=== PATIENT | female | born 1965 | race Caucasian/White ===

== ENCOUNTER 2017-09-18 12:03 | Inpatient (IN) | payer OTHER ==
[2017-09-18 13:12] VITALS: BMI 41.6
--- NOTE | 2017-09-18 14:53 | HP ---
CIWA Score - CIWA Score Nausea/Vomitin Muscle Tremors: 3 Anxiety: 3 Agitation: 3 Paroxysmal Sweats: 2 Orientation: 0-Oriented Tacttile Disturbances: 2-Mild Itch/Numbness/Burn Auditory Disturbances: 2-Mild Harshness/Frighten Visual Disturbances: 0-None Headache: 2-Mild CIWA-Ar Total Score: 20 Admission ROS [facility] - HPI Chief Complaint: i am here for detox from alcohol Allergies/Adverse Reactions: Allergies Allergy/AdvReac Type Severity Reaction Status Date / Time vancomycin Allergy Severe Rash Verified 09/18/17 14:47 History of Present Illness: this 52 years old female with alcohol dependence,seeking detox,last treatment [facility] last 3 months ago chronic ulcer of right foot and leg 3 years multiple medical problem hiv,dvt of right leg,s/p ivc filter, mmtp 70 mgs/day,last medicated today hiv one month ago s/p lap bariatric surgery 2013 s/p amputation of 2nd digit 06/17 no significant period of sobriety - Ebola screening Have you traveled outside of the country in the last 21 days: No Have you had contact with anyone from an Ebola affected area: No Have you been sick,other than usual withdrawal symptoms: No Do you have a fever: No - Review of Systems Constitutional: Night Sweats, Changes in sleep EENT: reports: Nose Congestion Respiratory: reports: No Symptoms reported Cardiac: reports: No Symptoms Reported GI: reports: Nausea, Poor Appetite, Vomiting : reports: No Symptoms Reported Musculoskeletal: reports: Back Pain, Muscle Pain Integumentary: reports: Dryness Neuro: reports: Headache, Tremors Endocrine: reports: No Symptoms Reported Hematology: reports: No Symptoms Reported, Other (hiv) Psychiatric: reports: No Sypmtoms Reported, Judgement Intact, Mood/Affect Appropiate, Orientated x3 Patient History - Patient Medical History Hx Anemia: No Hx Asthma: No Hx Chronic Obstructive Pulmonary Disease (COPD): No Hx Cancer: No Hx Cardiac Disorders: No Hx Congestive Heart Failure: No Hx Hypertension: No Hx Hypercholesterolemia: No Hx Pacemaker: No HX Cerebrovascular Accident: No Hx Seizures: No Hx Dementia: No Hx Diabetes: No Hx Gastrointestinal Disorders: No Hx Liver Disease: No Hx Genitourinary Disorders: No Hx Sexually Transmitted Disorders: No Hx Renal Disease (ESRD): No Hx Thyroid Disease: No Hx Human Immunodeficiency Virus (HIV): Yes (07/18 on med) Hx Hepatitis C: No Hx Depression: No Hx Suicide Attempt: No Hx Bipolar Disorder: No Hx Schizophrenia: No Other Medical History: no suicidal,no homicidal,chronic ulcer of right foot and leg,s/p lap bariat - Patient Surgical History Past Surgical History: Yes Hx Abdominal Surgery: Yes (s/p lap bariatric surgery in 2013) Other Surgical History: s/p ivc filter - PPD History Previous Implant?: Yes Documented Results: Negative w/o proof Implanted On Prior [facility] Admission?: No PPD to be Administered?: Yes - Reproductive History Patient is a Female of Child Bearing Age (11 -55 yrs old): Yes Patient : No - Smoking Cessation Smoking history: Never smoked - Substance & Tx. History Hx Alcohol Use: Yes Hx Substance Use: No Substance Use Type: Alcohol Hx Substance Use Treatment: Yes (last treatment [facility] 06/17) - Substances Abused Alcohol-beer Route: Oral Frequency: Daily Amount used: 15 (24 oz.) Age of first use: 21 Date of Last Use: 09/18/17 Family Disease History - Family Disease History Family History: Denies Admission Physical Exam [facility] - Vital Signs Vital Signs: Vital Signs - 24 hr 09/18/17 13:08 Temperature 97.4 F L Pulse Rate 105 H Respiratory 19 Rate Blood Pressure 113/111 - Physical General Appearance: Yes: Moderate Distress, Tremorous, Irritable, Sweating, Anxious HEENTM: Yes: Normal ENT Inspection, APPLE, Pharynx Normal Respiratory: Yes: Lungs Clear, Normal Breath Sounds, No Respiratory Distress Neck: Yes: Within Normal Limits, Supple, Trachea in good position Breast: Yes: Breast Exam Deferred Cardiology: Yes: Within Normal Limits, Regular Rhythm, Regular Rate, S1, S2 Abdominal: Yes: Within Normal Limits, Normal Bowel Sounds, Non Tender, Flat, Soft, Surgical Scar (s/p lap bariatric surgery) Genitourinary: Yes: Within Normal Limits Back: Yes: Muscle Spasm Musculoskeletal: Yes: Back pain, Muscle Pain Extremities: Yes: Normal Range of Motion, Tremors, Other (ulcer of righ foot right big toe 3x3 cm,no drianage,right leg with swelling) Neurological: Yes: Within Normal Limits, associate professor of medicine II-XII NML intact, Fully Oriented, Alert Integumentary: Yes: Dry Lymphatic: Yes: Within Normal Limits - Diagnostic (1) Alcohol dependence with uncomplicated withdrawal Current Visit: Yes Status: Chronic (2) Ulcer of right foot Current Visit: Yes Status: Acute (3) History of deep venous thrombosis (DVT) of distal vein of right lower extremity Current Visit: Yes Status: Chronic (4) S/P IVC filter Current Visit: Yes Status: Chronic (5) HIV (human immunodeficiency virus infection) Current Visit: Yes Status: Chronic (6) History of bariatric surgery Current Visit: Yes Status: Chronic (7) UTI (urinary tract infection) Current Visit: Yes Status: Acute Cleared for Admission [facility] - Detox or Rehab [facility] Level of Care: Medically Managed Detox Regimen/Protocol: Librium [facility] Breath Alcohol Content Breath Alcohol Content: 0.143 Urine Pregancy Test - Result Urine Test Results: Negative- NO Line Present Urine Drug Screen - Results Drug Screen Negative: No Urine Drug Screen Results: MTD-Methadone
[2017-09-18] MEDS ORDERED: guaiFENesin/D-METHORPHAN HB 10 ML UNIT-DOSE CUPS PO PRN (15:08)
[2017-09-18] MEDS ORDERED: MAG HYDROX/AL HYDROX/SIMETH 30 ML UNIT-DOSE CUP PO PRN (15:08)
[2017-09-18] MEDS ORDERED: MAGNESIUM HYDROX 2400MG/30ML ORAL SUSPENSION 30 ML CUP PO PRN (15:08)
[2017-09-18] MEDS ORDERED: MAGNESIUM CITRATE 300 ML BOTTLE PO PRN (15:08)
[2017-09-18] MEDS ORDERED: P-EPHED 60MG/TRIPROLIDI 2.5MG TABLET PO PRN (15:08)
[2017-09-18] MEDS ORDERED: hydrOXYzine PAMOATE 50 MG CAPSULE (FP) PO PRN (15:08)
[2017-09-18] MEDS ORDERED: MENTHOL/PHENOL 1 EACH UD MM PRN (15:08)
[2017-09-18] MEDS ORDERED: LOPERAMIDE HCL 2 MG CAPSULE PO PRN (15:08)
[2017-09-18] MEDS ORDERED: ACETAMINOPHEN 325 MG TABLET (FP) PO PRN (15:08)
[2017-09-18] MEDS ORDERED: chlordiazePOXIDE HCL 25 MG CAPSULE PO ONE ×2 (15:08→17:30)
[2017-09-18] MEDS ORDERED: LINEZOLID 600 MG PO SCH ×2 (15:15→18:58)
--- NOTE | 2017-09-18 19:00 | PN ---
[facility] Progress Note Note: received pharmacist call that linezolid issued on 06/2017, pharmacist unable to verify the medication discontinue linezolid continue detox
[2017-09-18 20:45] LABS: URINE APPEARANCE CLEAR; URINE BILIRUBIN NEGATIVE (NEGATIVE); URINE BLOOD 1+ (NEGATIVE); URINE COLOR STRAW; URINE GLUCOSE (UA) NEGATIVE (NEGATIVE); URINE KETONE NEGATIVE (NEGATIVE); URINE NITRITE NEGATIVE (NEGATIVE); URINE UROBILINOGEN NEGATIVE mg/dL (0.2-1.0)
[2017-09-18 20:54] LABS: URINE PROTEIN 1+ (NEGATIVE)
[2017-09-18 21:17] LABS: URINE BACTERIA FEW /hpf (NONE SEEN); URINE RBC <1 /hpf (0-3); URINE WBC 1 /hpf (3-5)
[2017-09-18] MEDS: chlordiazePOXIDE HCL 25 MG CAPSULE PO PRN (21:31)
[2017-09-18] MEDS ORDERED: NITROFURANTOIN MACROCRYSTAL 50 MG CAPSULE (FP) PO SCH (22:00)
[2017-09-18] MEDS ORDERED: PATIENT'S OWN MEDICATION (NON-FORMULARY) (Nitrofurantoin Macrocrystal [Nitrofurantoin] 100 PO SCH (22:00)
[2017-09-18 22:38] LABS: URINE LEUK ESTERASE Negative (NEGATIVE)
[2017-09-18] MEDS: THIAMINE HCL 100 MG TABLET (FP) PO SCH (23:01)
[2017-09-18] MEDS: chlordiazePOXIDE HCL 25 MG CAPSULE PO SCH (23:05)
[2017-09-18] MEDS: diphenhydrAMINE HCL 50 MG CAPSULE PO PRN (23:06)
[2017-09-18] MEDS: SILVER SULFADIAZINE 1% TOP CREAM 50 GM JAR TP SCH (23:06)
[2017-09-19] MEDS: chlordiazePOXIDE HCL 25 MG CAPSULE PO SCH ×4 (05:54→22:46)
[2017-09-19] MEDS: IBUPROFEN 400 MG TABLET (FP) PO PRN ×2 (07:56→17:30)
[2017-09-19] MEDS ORDERED: METHADONE HCL 10 MG TABLET PO ONE (09:09)
[2017-09-19] MEDS ORDERED: METHADONE 40 MG, METHADONE 30 MG PO ONE (09:20)
[2017-09-19] MEDS ORDERED: METHADONE HCL 40 MG DISPERSABLE TABLET ONE (09:54)
[2017-09-19] MEDS ORDERED: METHADONE HCL 10 MG TABLET ONE (09:54)
[2017-09-19] MEDS: PRENATAL VITAMINS W/ FOLIC ACID TABLET (FP) PO SCH (09:59)
[2017-09-19] MEDS: SILVER SULFADIAZINE 1% TOP CREAM 50 GM JAR TP SCH ×2 (10:00→21:57)
[2017-09-19 10:45] LABS: MCHC 30.6 g/dl (32.0-36.0); MEAN CELL VOLUME 75.3 fl (80-96); PLATELET COUNT 213 K/MM3 (134-434); RDW 18.4 % (11.6-15.6); WHITE BLOOD COUNT 4.5 K/mm3 (4.0-10.0)
[2017-09-19 11:10] LABS: ALBUMIN 2.4 g/dl (3.4-5.0); ALK PHOS 100 U/L (45-117); ANION GAP 9 (8-16); BILIRUBIN,TOTAL 0.8 mg/dL (0.2-1.0); CALCIUM 8.1 mg/dL (8.5-10.1); CO2 30 mmol/L (21-32); CREATININE 0.4 mg/dL (0.55-1.02); GLUCOSE,RANDOM 100 mg/dL (74-106); SGOT/AST 16 U/L (15-37); SGPT/ALT 12 U/L (12-78); TOT PROT 7.6 g/dl (6.4-8.2)
[2017-09-19 11:12] LABS: SICKLE CELL SCREEN NEGATIVE (NEGATIVE)
--- NOTE | 2017-09-19 12:30 | PN ---
[facility] CIWA - CIWA Score Nausea/Vomitin-No Nausea/No Vomiting Muscle Tremors: 4-Moderate,w/Arms Extend Anxiety: 3 Agitation: 4-Moderately Restless Paroxysmal Sweats: 3 Orientation: 0-Oriented Tacttile Disturbances: 0-None Auditory Disturbances: 0-None Visual Disturbances: 0-None Headache: 1-Very Mild CIWA-Ar Total Score: 15 [facility] Progress Note (SOAP) Subjective: interrupted sleep shakes sweats body aches irritable agitation Objective: 09/19/17 12:24 Vital Signs Temperature 98.0 F 09/19/17 10:09 Pulse Rate 94 H 09/19/17 10:09 Respiratory Rate 18 09/19/17 10:09 Blood Pressure 115/87 09/19/17 10:09 O2 Sat by Pulse Oximetry (%) Laboratory Tests 09/18/17 09/19/17 09/19/17 20:00 07:00 07:00 WBC 4.5 RBC 3.98 Hgb 9.2 L Hct 30.0 L MCV 75.3 L MCH 23.0 L MCHC 30.6 L RDW 18.4 H Plt Count 213 MPV 7.0 L Sickle Cell Screen Negative Sodium 138 Potassium 3.5 Chloride 99 Carbon Dioxide 30 Anion Gap 9 BUN 5 L Creatinine 0.4 L Creat Clearance w eGFR > 60 Random Glucose 100 Calcium 8.1 L Total Bilirubin 0.8 AST 16 ALT 12 Alkaline Phosphatase 100 Total Protein 7.6 Albumin 2.4 L Urine Color Straw Urine Appearance Clear Urine pH 5.0 Ur Specific [place] <= 1.005 Urine Protein 1+ H Urine Glucose (UA) Negative Urine Ketones Negative Urine Blood 1+ H Urine Nitrite Negative Urine Bilirubin Negative Urine Urobilinogen Negative Ur Leukocyte Esterase Negative Urine RBC <1 Urine WBC 1 Ur Epithelial Cells Rare Urine Bacteria Few RPR Titer 09/19/17 07:00 WBC RBC Hgb Hct MCV MCH MCHC RDW Plt Count MPV Sickle Cell Screen Sodium Potassium Chloride Carbon Dioxide Anion Gap BUN Creatinine Creat Clearance w eGFR Random Glucose Calcium Total Bilirubin AST ALT Alkaline Phosphatase Total Protein Albumin Urine Color Urine Appearance Urine pH Ur Specific [place] Urine Protein Urine Glucose (UA) Urine Ketones Urine Blood Urine Nitrite Urine Bilirubin Urine Urobilinogen Ur Leukocyte Esterase Urine RBC Urine WBC Ur Epithelial Cells Urine Bacteria RPR Titer Nonreactive aaox3 ambulating no acute distress foot ulcer assessed, no drainage noted however, d/t past medical history of MRSA , wound culture ordered for validation wound care ordered Assessment: 09/19/17 12:26 withdrawal sx Plan: continue detox increase fluids mrsa culture wound ordered
--- NOTE | 2017-09-19 13:07 | EKG ---
Test Reason : Blood Pressure : / mmHG Vent. Rate : 095 BPM Atrial Rate : 095 BPM P-R Int : 202 ms QRS Dur : 092 ms QT Int : 384 ms P-R-T Axes : 067 040 042 degrees QTc Int : 482 ms NORMAL SINUS RHYTHM CANNOT RULE OUT ANTERIOR INFARCT , AGE UNDETERMINED ABNORMAL ECG NO PREVIOUS ECGS AVAILABLE Confirmed by AUDREY PENN MD ([id number]) on 09/19/2017 1:07:24 PM Referred By: Confirmed By:AUDREY PENN MD
--- NOTE | 2017-09-19 13:47 | PN ---
[facility] Progress Note Note: rash both hands,itching,benadryl 25 mgs po q 6 hrs prn for itching
[2017-09-19] MEDS: chlordiazePOXIDE HCL 25 MG CAPSULE PO PRN (13:55)
[2017-09-19] MEDS: diphenhydrAMINE HCL 25 MG CAPSULE (FP) PO PRN (14:49)
[2017-09-19] MEDS: diphenhydrAMINE HCL 50 MG CAPSULE PO PRN (21:56)
[2017-09-19] MEDS: THIAMINE HCL 100 MG TABLET (FP) PO SCH (21:57)
[2017-09-20] MEDS: IBUPROFEN 400 MG TABLET (FP) PO PRN (03:25)
[2017-09-20] MEDS: chlordiazePOXIDE HCL 25 MG CAPSULE PO PRN (03:25)
[2017-09-20] MEDS ORDERED: METHADONE HCL 40 MG DISPERSABLE TABLET ONE (05:05)
[2017-09-20] MEDS ORDERED: METHADONE HCL 10 MG TABLET ONE (05:05)
[2017-09-20] MEDS: METHADONE 40 MG, METHADONE 30 MG PO SCH (05:59)
[2017-09-20] MEDS: chlordiazePOXIDE HCL 25 MG CAPSULE PO SCH ×3 (05:59→16:50)
[2017-09-20] MEDS ORDERED: METHADONE HCL 40 MG DISPERSABLE TABLET PO SCH ×2 (06:00)
[2017-09-20] MEDS: SILVER SULFADIAZINE 1% TOP CREAM 50 GM JAR TP SCH ×2 (11:02→23:08)
[2017-09-20] MEDS: PRENATAL VITAMINS W/ FOLIC ACID TABLET (FP) PO SCH (11:03)
[2017-09-20] MEDS: diphenhydrAMINE HCL 25 MG CAPSULE (FP) PO PRN ×2 (11:07→17:54)
--- NOTE | 2017-09-20 13:01 | PN ---
S CIWA - CIWA Score Nausea/Vomitin-No Nausea/No Vomiting Muscle Tremors: 4-Moderate,w/Arms Extend Anxiety: 3 Agitation: 3 Paroxysmal Sweats: 3 Orientation: 0-Oriented Tacttile Disturbances: 0-None Auditory Disturbances: 0-None Visual Disturbances: 0-None Headache: 0-None Present CIWA-Ar Total Score: 13 [facility] Progress Note (SOAP) Subjective: sweats shakes anxiety interrupted sleep Objective: 09/20/17 12:57 Vital Signs Temperature 97.1 F L 09/20/17 10:03 Pulse Rate 117 H 09/20/17 10:03 Respiratory Rate 20 09/20/17 10:03 Blood Pressure 122/86 09/20/17 10:03 O2 Sat by Pulse Oximetry (%) Laboratory Tests 09/18/17 09/19/17 09/19/17 20:00 07:00 07:00 WBC 4.5 RBC 3.98 Hgb 9.2 L Hct 30.0 L MCV 75.3 L MCH 23.0 L MCHC 30.6 L RDW 18.4 H Plt Count 213 MPV 7.0 L Sickle Cell Screen Negative Sodium 138 Potassium 3.5 Chloride 99 Carbon Dioxide 30 Anion Gap 9 BUN 5 L Creatinine 0.4 L Creat Clearance w eGFR > 60 Random Glucose 100 Calcium 8.1 L Total Bilirubin 0.8 AST 16 ALT 12 Alkaline Phosphatase 100 Total Protein 7.6 Albumin 2.4 L Urine Color Straw Urine Appearance Clear Urine pH 5.0 Ur Specific [place] <= 1.005 Urine Protein 1+ H Urine Glucose (UA) Negative Urine Ketones Negative Urine Blood 1+ H Urine Nitrite Negative Urine Bilirubin Negative Urine Urobilinogen Negative Ur Leukocyte Esterase Negative Urine RBC <1 Urine WBC 1 Ur Epithelial Cells Rare Urine Bacteria Few RPR Titer 09/19/17 07:00 WBC RBC Hgb Hct MCV MCH MCHC RDW Plt Count MPV Sickle Cell Screen Sodium Potassium Chloride Carbon Dioxide Anion Gap BUN Creatinine Creat Clearance w eGFR Random Glucose Calcium Total Bilirubin AST ALT Alkaline Phosphatase Total Protein Albumin Urine Color Urine Appearance Urine pH Ur Specific [place] Urine Protein Urine Glucose (UA) Urine Ketones Urine Blood Urine Nitrite Urine Bilirubin Urine Urobilinogen Ur Leukocyte Esterase Urine RBC Urine WBC Ur Epithelial Cells Urine Bacteria RPR Titer Nonreactive aaox3 ambulating no acute distress Assessment: 09/20/17 13:01 withdrawal sx Plan: continue detox increase fluids pending labs
[2017-09-20] MEDS: THIAMINE HCL 100 MG TABLET (FP) PO SCH (23:08)
[2017-09-20] MEDS: chlordiazePOXIDE 5 MG CAPSULE PO SCH (23:08)
[2017-09-20] MEDS: diphenhydrAMINE HCL 50 MG CAPSULE PO PRN (23:09)
[2017-09-21] MEDS: IBUPROFEN 400 MG TABLET (FP) PO PRN (04:14)
[2017-09-21] MEDS ORDERED: METHADONE HCL 10 MG TABLET ONE (04:23)
[2017-09-21] MEDS ORDERED: METHADONE HCL 40 MG DISPERSABLE TABLET ONE (04:23)
[2017-09-21] MEDS: METHADONE 40 MG, METHADONE 30 MG PO SCH (06:23)
[2017-09-21] MEDS: chlordiazePOXIDE 5 MG CAPSULE PO SCH ×3 (06:23→17:46)
[2017-09-21] MEDS: SILVER SULFADIAZINE 1% TOP CREAM 50 GM JAR TP SCH ×2 (11:18→22:55)
[2017-09-21] MEDS: PRENATAL VITAMINS W/ FOLIC ACID TABLET (FP) PO SCH (11:19)
--- NOTE | 2017-09-21 13:01 | PN ---
[facility] Progress Note (SOAP) Subjective: anxious, shaky, poor sleep Objective: 09/21/17 13:01 Laboratory Tests 09/18/17 09/19/17 09/19/17 20:00 07:00 07:00 WBC 4.5 RBC 3.98 Hgb 9.2 L Hct 30.0 L MCV 75.3 L MCH 23.0 L MCHC 30.6 L RDW 18.4 H Plt Count 213 MPV 7.0 L Sickle Cell Screen Negative Sodium 138 Potassium 3.5 Chloride 99 Carbon Dioxide 30 Anion Gap 9 BUN 5 L Creatinine 0.4 L Creat Clearance w eGFR > 60 Random Glucose 100 Calcium 8.1 L Total Bilirubin 0.8 AST 16 ALT 12 Alkaline Phosphatase 100 Total Protein 7.6 Albumin 2.4 L Urine Color Straw Urine Appearance Clear Urine pH 5.0 Ur Specific [place] <= 1.005 Urine Protein 1+ H Urine Glucose (UA) Negative Urine Ketones Negative Urine Blood 1+ H Urine Nitrite Negative Urine Bilirubin Negative Urine Urobilinogen Negative Ur Leukocyte Esterase Negative Urine RBC <1 Urine WBC 1 Ur Epithelial Cells Rare Urine Bacteria Few RPR Titer 09/19/17 07:00 WBC RBC Hgb Hct MCV MCH MCHC RDW Plt Count MPV Sickle Cell Screen Sodium Potassium Chloride Carbon Dioxide Anion Gap BUN Creatinine Creat Clearance w eGFR Random Glucose Calcium Total Bilirubin AST ALT Alkaline Phosphatase Total Protein Albumin Urine Color Urine Appearance Urine pH Ur Specific [place] Urine Protein Urine Glucose (UA) Urine Ketones Urine Blood Urine Nitrite Urine Bilirubin Urine Urobilinogen Ur Leukocyte Esterase Urine RBC Urine WBC Ur Epithelial Cells Urine Bacteria RPR Titer Nonreactive Vital Signs Period Temp Pulse Resp BP Sys/[place] Pulse Ox Last 24 Hr 97.2 F-98.1 F 72-114 18-20 123-156/63-106 Assessment: 09/21/17 13:01 ongoing withdrawal Plan: cont detox protocol
[2017-09-21] MEDS: SULFAMETHOXAZOLE/TRIMETHOPRIM 800MG/160MG D.S. TABLET PO SCH ×2 (15:05→22:53)
[2017-09-21] MEDS: ACAMPROSATE CALCIUM PO SCH ×2 (15:31→22:53)
[2017-09-21] MEDS: chlordiazePOXIDE HCL 10 MG CAPSULE PO SCH (22:53)
[2017-09-21] MEDS: THIAMINE HCL 100 MG TABLET (FP) PO SCH (22:53)
[2017-09-21] MEDS: diphenhydrAMINE HCL 50 MG CAPSULE PO PRN (22:53)
[2017-09-22] MEDS: IBUPROFEN 400 MG TABLET (FP) PO PRN (02:23)
[2017-09-22] MEDS ORDERED: METHADONE HCL 40 MG DISPERSABLE TABLET ONE (04:28)
[2017-09-22] MEDS ORDERED: METHADONE HCL 10 MG TABLET ONE (04:28)
[2017-09-22] MEDS: chlordiazePOXIDE HCL 10 MG CAPSULE PO SCH (06:06)
[2017-09-22] MEDS: METHADONE 40 MG, METHADONE 30 MG PO SCH (06:07)
[2017-09-22] MEDS: ACAMPROSATE CALCIUM PO SCH (06:07)
[2017-09-22 07:41] VITALS: BP 153/93; PULSE 109; TEMP 97.7
--- NOTE | 2017-09-22 11:45 | DS ---
[facility] Detox Discharge Summary Admission Date: 09/18/17 Discharge Date: 09/22/17 - History Present History: Alcohol Dependence Pertinent Past History: HIV Infection MRSA Ulcer of legs DVT S/P IVC filter Anemia - Physical Exam Results Vital Signs: Vital Signs Temperature 97.7 F 09/22/17 06:00 Pulse Rate 109 H 09/22/17 06:00 Respiratory Rate 20 09/22/17 06:00 Blood Pressure 153/93 09/22/17 06:00 O2 Sat by Pulse Oximetry (%) Pertinent Admission Physical Exam Findings: Withdrawal sx Laboratory Last Values WBC 4.5 K/mm3 (4.0-10.0) 09/19/17 07:00 RBC 3.98 M/mm3 (3.60-5.2) 09/19/17 07:00 Hgb 9.2 GM/dL (10.7-15.3) L 09/19/17 07:00 Hct 30.0 % (32.4-45.2) L 09/19/17 07:00 MCV 75.3 fl (80-96) L 09/19/17 07:00 MCH 23.0 pg (25.7-33.7) L 09/19/17 07:00 MCHC 30.6 g/dl (32.0-36.0) L 09/19/17 07:00 RDW 18.4 % (11.6-15.6) H 09/19/17 07:00 Plt Count 213 K/MM3 (134-434) 09/19/17 07:00 MPV 7.0 fl (7.5-11.1) L 09/19/17 07:00 Sickle Cell Screen Negative (NEGATIVE) 09/19/17 07:00 Sodium 138 mmol/L (136-145) 09/19/17 07:00 Potassium 3.5 mmol/L (3.5-5.1) 09/19/17 07:00 Chloride 99 mmol/L (98-107) 09/19/17 07:00 Carbon Dioxide 30 mmol/L (21-32) 09/19/17 07:00 Anion Gap 9 (8-16) 09/19/17 07:00 BUN 5 mg/dL (7-18) L 09/19/17 07:00 Creatinine 0.4 mg/dL (0.55-1.02) L 09/19/17 07:00 Creat Clearance w eGFR > 60 (>60) 09/19/17 07:00 Random Glucose 100 mg/dL (74-106) 09/19/17 07:00 Calcium 8.1 mg/dL (8.5-10.1) L 09/19/17 07:00 Total Bilirubin 0.8 mg/dL (0.2-1.0) 09/19/17 07:00 AST 16 U/L (15-37) 09/19/17 07:00 ALT 12 U/L (12-78) 09/19/17 07:00 Alkaline Phosphatase 100 U/L (45-117) 09/19/17 07:00 Total Protein 7.6 g/dl (6.4-8.2) 09/19/17 07:00 Albumin 2.4 g/dl (3.4-5.0) L 09/19/17 07:00 Urine Color Straw 09/18/17 20:00 Urine Appearance Clear 09/18/17 20:00 Urine pH 5.0 (5.0-8.0) 09/18/17 20:00 Ur Specific [place] <= 1.005 (1.005-1.025) 09/18/17 20:00 Urine Protein 1+ (NEGATIVE) H 09/18/17 20:00 Urine Glucose (UA) Negative (NEGATIVE) 09/18/17 20:00 Urine Ketones Negative (NEGATIVE) 09/18/17 20:00 Urine Blood 1+ (NEGATIVE) H 09/18/17 20:00 Urine Nitrite Negative (NEGATIVE) 09/18/17 20:00 Urine Bilirubin Negative (NEGATIVE) 09/18/17 20:00 Urine Urobilinogen Negative mg/dL (0.2-1.0) 09/18/17 20:00 Ur Leukocyte Esterase Negative (NEGATIVE) 09/18/17 20:00 Urine RBC <1 /hpf (0-3) 09/18/17 20:00 Urine WBC 1 /hpf (3-5) 09/18/17 20:00 Ur Epithelial Cells Rare /hpf (FEW) 09/18/17 20:00 Urine Bacteria Few /hpf (NONE SEEN) 09/18/17 20:00 RPR Titer Nonreactive (NONREACTIVE) 09/19/17 07:00 labs noted - Treatment Hospital Course: Detox Protocol Followed, Detoxed Safely, Responded well, Discharged Condition Good, Rehab Referral Accepted Patient has Accepted a Rehab Referral to: [facility] - Medication Discharge Medications: Ambulatory Orders Acamprosate Calcium [Campral -] 666 mg PO TID 09/18/17 Elviteg/Ondina/Emtric/Tenofo Ala [Genvoya Tablet] 1 each PO DAILY 09/18/17 Linezolid [Zyvox] 600 mg PO Q12H 09/18/17 Nitrofurantoin Macrocrystal [Nitrofurantoin] 100 mg PO Q12H 09/18/17 Elviteg/Ondina/Emtric/Tenofo Ala [Genvoya Tablet] 1 tab PO DAILY 09/21/17 - Diagnosis (1) Ulcer of right foot Status: Acute (2) Alcohol dependence with uncomplicated withdrawal Status: Acute (3) HIV (human immunodeficiency virus infection) Status: Chronic (4) History of deep venous thrombosis (DVT) of distal vein of right lower extremity Status: Chronic (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
== END 2017-09-22 09:55 | disposition home or self-care (01) | DRG 773 ==
LOC: EDSEX → YASAS 12:03 → Y6N 15:55
PROVIDERS: ADMIT Internal Medicine; ATTEND Internal Medicine
PROC: HZ2ZZZZ Detoxification Services for Substance Abuse Treatment (ICD-10-PCS; principal; 2017-09-18)
DX: F10.230 Alcohol dependence with withdrawal, uncomplicated (principal); F11.20 Opioid dependence, uncomplicated; N39.0 Urinary tract infection, site not specified; Z21 Asymptomatic human immunodeficiency virus [HIV] infection status; L97.419 Non-pressure chronic ulcer of right heel and midfoot with unspecified severity; R21 Rash and other nonspecific skin eruption; Z86.718 Personal history of other venous thrombosis and embolism; Z95.828 Presence of other vascular implants and grafts; Z98.84 Bariatric surgery status; Z88.1 Allergy status to other antibiotic agents
CPT/HCPCS: 36415; 80053; 81003; 81015; 85027; 85660; 86593; 87070; 87186; 87205; 93005; 93010

== ENCOUNTER 2017-10-29 11:56 | Inpatient (IN) | payer OTHER ==
[2017-10-29 12:20] VITALS: BMI 39.5
--- NOTE | 2017-10-29 15:53 | HP ---
CIWA Score - CIWA Score Nausea/Vomitin-Mild Nausea/No Vomiting Muscle Tremors: 4-Moderate,w/Arms Extend Anxiety: 4-Mod. Anxious/Guarded Agitation: 4-Moderately Restless Paroxysmal Sweats: 3 Orientation: 0-Oriented Tacttile Disturbances: 0-None Auditory Disturbances: 0-None Visual Disturbances: 1-Very Mild Sensitivity Headache: 1-Very Mild CIWA-Ar Total Score: 18 Admission ROS [facility] - HPI Chief Complaint: I need get cleaned. Allergies/Adverse Reactions: Allergies Allergy/AdvReac Type Severity Reaction Status Date / Time vancomycin Allergy Severe Rash Verified 10/29/17 15:29 History of Present Illness: pt is a 52yr old female with a history of alcohol dependence seeking detox for treatment. Pt is also on a mmtp program last time dosed was today with 120mg. pending verification. pt has chronic venous status ulcer with cellulites to both lower legs. drainage noted. Exam Limitations: Other (cellulites to both lower extremities.) - Ebola screening Have you traveled outside of the country in the last 21 days: No Have you had contact with anyone from an Ebola affected area: No Have you been sick,other than usual withdrawal symptoms: No Do you have a fever: No - Review of Systems Constitutional: Chills, Diaphoresis EENT: reports: Nose Congestion Respiratory: reports: No Symptoms reported Cardiac: reports: No Symptoms Reported GI: reports: Diarrhea, Poor Fluid Intake : reports: No Symptoms Reported Musculoskeletal: reports: Joint Pain, Muscle Pain Integumentary: reports: Flushing, Sweating, Other (lower leg cellulities) Neuro: reports: Tingling, Tremors Endocrine: reports: Excessive Sweating, Flushing, Intolerance to Cold, Intolerance to Heat Hematology: reports: No Symptoms Reported Psychiatric: reports: Judgement Intact, Orientated x3, Agitated, Anxious Other Systems: Reviewed and Negative Patient History - Patient Medical History Hx Anemia: No Hx Asthma: No Hx Chronic Obstructive Pulmonary Disease (COPD): No Hx Cancer: No Hx Cardiac Disorders: No Hx Congestive Heart Failure: No Hx Hypertension: No Hx Hypercholesterolemia: No Hx Pacemaker: No HX Cerebrovascular Accident: No Hx Seizures: No Hx Dementia: No Hx Diabetes: No Hx Gastrointestinal Disorders: No Hx Liver Disease: No Hx Genitourinary Disorders: No Hx Sexually Transmitted Disorders: No Hx Renal Disease (ESRD): No Hx Thyroid Disease: No Hx Human Immunodeficiency Virus (HIV): Yes (07/18 on med) Hx Hepatitis C: No Hx Depression: Yes Hx Suicide Attempt: No Hx Bipolar Disorder: No Hx Schizophrenia: No Other Medical History: chronic lower leg ulcer with cellulites - Patient Surgical History Past Surgical History: Yes Hx Neurologic Surgery: No Hx Cataract Extraction: No Hx Cardiac Surgery: No Hx Lung Surgery: No Hx Breast Surgery: No Hx Breast Biopsy: No Hx Abdominal Surgery: Yes (s/p lap bariatric surgery in 2013) Hx Appendectomy: No Hx Cholecystectomy: No Hx Genitourinary Surgery: No Hx Section: Yes (fx, right arm (fall)) Hx Orthopedic Surgery: Yes (R arm fx sx and facial fx in 2013) Other Surgical History: s/p ivc filter R second toe amputated in 2015 Anesthesia Reaction: No - PPD History Previous Implant?: Yes Documented Results: Negative w/proof Implanted On Prior [facility] Admission?: Yes Date: 09/20/17 Results: 0 mm PPD to be Administered?: No - Reproductive History Patient is a Female of Child Bearing Age (11 -55 yrs old): Yes Patient : No - Smoking Cessation Smoking history: Never smoked Have you smoked in the past 12 months: No Hx Chewing Tobacco Use: No Initiated information on smoking cessation: No - Substance & Tx. History Hx Alcohol Use: Yes Hx Substance Use: No Substance Use Type: Alcohol Hx Substance Use Treatment: Yes (last detox 09/2017) - Substances Abused Alcohol Route: Oral Frequency: Daily Amount used: 11-12 24 oz cans beer Age of first use: 49 Date of Last Use: 10/29/17 Family Disease History - Family Disease History Family History: Denies Admission Physical Exam [facility] - Vital Signs Vital Signs: Vital Signs - 24 hr 10/29/17 12:18 Temperature 97.4 F L Pulse Rate 106 H Respiratory 20 Rate Blood Pressure 149/74 - Physical General Appearance: Yes: Disheveled, Obese, Tremorous, Irritable, Sweating, Anxious HEENTM: Yes: Normal Voice, Nasal Congestion, Rhinorrhea Respiratory: Yes: Lungs Clear, Normal Breath Sounds, No Respiratory Distress Neck: Yes: No masses,lesions,Nodules Breast: Yes: Within Normal Limits Cardiology: Yes: Regular Rhythm, Regular Rate, S1, S2 Abdominal: Yes: Normal Bowel Sounds Genitourinary: Yes: Within Normal Limits Back: Yes: Normal Inspection Musculoskeletal: Yes: Back pain Extremities: Yes: Normal Range of Motion, Tremors, Calf Tenderness, Erythema Neurological: Yes: Fully Oriented, Alert, Normal Response Integumentary: Yes: Erythema (to lower legs with cellulites), Diaphoresis Lymphatic: Yes: Within Normal Limits - Diagnostic (1) Alcohol dependence with uncomplicated withdrawal Current Visit: Yes Status: Chronic (2) HIV (human immunodeficiency virus infection) Current Visit: Yes Status: Chronic (3) History of deep venous thrombosis (DVT) of distal vein of right lower extremity Current Visit: Yes Status: Chronic (4) Methadone maintenance therapy patient Current Visit: No Status: Chronic (5) S/P IVC filter Current Visit: No Status: Chronic (6) Cellulitis of both lower extremities Current Visit: Yes Status: Chronic (7) Ulcer of right foot Current Visit: No Status: Chronic Qualifiers: Non-pressure ulcer stage: unspecified non-pressure ulcer stage Qualified Code(s): L97.519 - Non-pressure chronic ulcer of other part of right foot with unspecified severity Cleared for Admission [facility] - Detox or Rehab [facility] Level of Care: Medically Managed Detox Regimen/Protocol: Librium [facility] Breath Alcohol Content Breath Alcohol Content: 0.340 Urine Pregancy Test - Result Urine Test Results: Negative- NO Line Present Urine Drug Screen - Results Drug Screen Negative: No Urine Drug Screen Results: MTD-Methadone
[2017-10-29] MEDS ORDERED: MAG HYDROX/AL HYDROX/SIMETH 30 ML UNIT-DOSE CUP PO PRN (16:03)
[2017-10-29] MEDS ORDERED: guaiFENesin/D-METHORPHAN HB 10 ML UNIT-DOSE CUPS PO PRN (16:03)
[2017-10-29] MEDS ORDERED: MAGNESIUM CITRATE 300 ML BOTTLE PO PRN (16:03)
[2017-10-29] MEDS ORDERED: chlordiazePOXIDE HCL 25 MG CAPSULE PO ONE (16:03)
[2017-10-29] MEDS ORDERED: LOPERAMIDE HCL 2 MG CAPSULE PO PRN (16:03)
[2017-10-29] MEDS ORDERED: P-EPHED 60MG/TRIPROLIDI 2.5MG TABLET PO PRN (16:03)
[2017-10-29] MEDS ORDERED: MAGNESIUM HYDROX 2400MG/30ML ORAL SUSPENSION 30 ML CUP PO PRN (16:03)
[2017-10-29] MEDS ORDERED: IBUPROFEN 400 MG TABLET (FP) PO PRN (16:03)
[2017-10-29] MEDS ORDERED: MENTHOL/PHENOL 1 EACH UD MM PRN (16:03)
[2017-10-29] MEDS: CEPHALEXIN MONOHYDRATE 500 MG CAPSULE (UD) PO SCH ×2 (17:16→23:41)
[2017-10-29] MEDS: chlordiazePOXIDE HCL 25 MG CAPSULE PO SCH ×2 (17:16→22:32)
[2017-10-29] MEDS ORDERED: ONDANSETRON *ODT* 4 MG TABLET SL ONE (20:12)
[2017-10-29] MEDS: hydrOXYzine PAMOATE 50 MG CAPSULE (FP) PO PRN (22:32)
[2017-10-29] MEDS: ACETAMINOPHEN 325 MG TABLET (FP) PO PRN (22:32)
[2017-10-29] MEDS: THIAMINE HCL 100 MG TABLET (FP) PO SCH (22:33)
[2017-10-29] MEDS: SILVER SULFADIAZINE 1% TOP CREAM 50 GM JAR TP SCH (22:33)
[2017-10-30] MEDS: chlordiazePOXIDE HCL 25 MG CAPSULE PO PRN (02:39)
[2017-10-30] MEDS: chlordiazePOXIDE HCL 25 MG CAPSULE PO SCH ×4 (05:59→23:25)
[2017-10-30] MEDS: CEPHALEXIN MONOHYDRATE 500 MG CAPSULE (UD) PO SCH ×4 (06:00→23:25)
--- NOTE | 2017-10-30 07:37 | CONSULT ---
[facility] Psychiatric Consult - Data Date of interview: 10/30/17 Admission source: [facility] Identifying data: This is 52 years old female with no psychiatric hospitalization history intoxicated with: Alcohol, Opioids Substance Abuse History: - Smoking Cessation. Smoking history: Never smoked. Have you smoked in the past 12 months: No. Hx Chewing Tobacco Use: No. Initiated information on smoking cessation: No. - Substance & Tx. History. Hx Alcohol Use: Yes. Hx Substance Use: No. Substance Use Type: Alcohol. Hx Substance Use Treatment: Yes (last detox 09/2017). - Substances Abused. Alcohol. Route: Oral. Frequency: Daily. Amount used: 11-12 24 oz cans beer. Age of first use: 49. Date of Last Use: 10/29/17 Medical History: History od IVC, HIV+, DVT, MMTP 120mg poqd Psychiatric History: Denies Physical/Sexual Abuse/Trauma History: Unclear Additional Comment: Observation. Detox Unit Care Protocol Mental Status Exam - Mental Status Exam Alert and Oriented to: Person Cognitive Function: Fair Patient Appearance: Unkempt Mood: Apprehensive Affect: Mood Congruent Patient Behavior: Cooperative Speech Pattern: Appropriate, Artificially Ventilated Thought Process: Circumstantial Thought Disorder: Being Controlled Hallucinations: Denies Suicidal Ideation: Denies Homicidal Ideation: Denies Insight/Judgement: Fair Sleep: Fair Appetite: Weight gain Muscle strength/Tone: Normal Gait/Station: Shuffling Additional Comments: Observation. Detox Unit Care Protocol Psychiatric Findings - Problem List ([place] 1, 2,3) (1) Drug-induced mood disorder Current Visit: Yes Status: Suspected (2) Alcohol dependence with uncomplicated withdrawal Current Visit: Yes Status: Chronic (3) Methadone maintenance therapy patient Current Visit: No Status: Chronic - Initial Treatment Plan Initial Treatment Plan: Observation. Detox Unit Care Protocol
[2017-10-30] MEDS ORDERED: METHADONE HCL 40 MG DISPERSABLE TABLET PO ONE (10:00)
[2017-10-30] MEDS: PRENATAL VITAMINS W/ FOLIC ACID TABLET (FP) PO SCH (10:15)
[2017-10-30 10:17] LABS: MCH 21.7 pg (25.7-33.7); MEAN CELL VOLUME 72.4 fl (80-96); PLATELET COUNT 213 K/MM3 (134-434); RDW 18.7 % (11.6-15.6); WHITE BLOOD COUNT 6.7 K/mm3 (4.0-10.0)
[2017-10-30 10:27] LABS: ALBUMIN 2.3 g/dl (3.4-5.0); ALK PHOS 123 U/L (45-117); ANION GAP 5 (8-16); BILIRUBIN,TOTAL 0.6 mg/dL (0.2-1.0); CO2 32 mmol/L (21-32); CREATININE 0.4 mg/dL (0.55-1.02); GLUCOSE,RANDOM 101 mg/dL (74-106); SGOT/AST 18 U/L (15-37); SGPT/ALT 15 U/L (12-78); TOT PROT 7.7 g/dl (6.4-8.2)
[2017-10-30 10:46] LABS: URINE APPEARANCE CLEAR; URINE BILIRUBIN NEGATIVE (NEGATIVE); URINE BLOOD 2+ (NEGATIVE); URINE COLOR LT. YELLOW; URINE GLUCOSE (UA) NEGATIVE (NEGATIVE); URINE KETONE TRACE (NEGATIVE); URINE UROBILINOGEN 0.2 mg/dL (0.2-1.0)
[2017-10-30 10:53] LABS: URINE NITRITE POSITIVE (NEGATIVE); URINE PROTEIN 3+ (NEGATIVE)
--- NOTE | 2017-10-30 11:23 | PN ---
S CIWA - CIWA Score Nausea/Vomitin-No Nausea/No Vomiting Muscle Tremors: 4-Moderate,w/Arms Extend Anxiety: 4-Mod. Anxious/Guarded Agitation: 4-Moderately Restless Paroxysmal Sweats: 3 Orientation: 0-Oriented Tacttile Disturbances: 0-None Auditory Disturbances: 0-None Visual Disturbances: 0-None Headache: 1-Very Mild CIWA-Ar Total Score: 16 BHS Progress Note (SOAP) Subjective: irritable agitation anxiety interrupted sleep sweats body aches Objective: 10/30/17 11:18 Vital Signs Temperature 98.1 F 10/30/17 11:15 Pulse Rate 102 H 10/30/17 11:15 Respiratory Rate 18 10/30/17 11:15 Blood Pressure 156/96 10/30/17 11:15 O2 Sat by Pulse Oximetry (%) Laboratory Tests 10/29/17 10/30/17 10/30/17 00:00 07:00 07:00 WBC 6.7 D RBC 3.83 Hgb 8.3 L Hct 27.7 L MCV 72.4 L MCH 21.7 L MCHC 30.0 L RDW 18.7 H Plt Count 213 MPV 7.0 L Sodium 135 L Potassium 4.1 Chloride 98 Carbon Dioxide 32 Anion Gap 5 L BUN 4 L Creatinine 0.4 L Creat Clearance w eGFR > 60 Random Glucose 101 Calcium 8.0 L Total Bilirubin 0.6 D AST 18 ALT 15 D Alkaline Phosphatase 123 H D Total Protein 7.7 Albumin 2.3 L Urine Color Lt. yellow Urine Appearance Clear Urine pH 6.0 Ur Specific [place] 1.025 Urine Protein 3+ H D Urine Glucose (UA) Negative Urine Ketones Trace H Urine Blood 2+ H Urine Nitrite Positive Urine Bilirubin Negative Urine Urobilinogen 0.2 repeat cbc, u/a aaox3 ambulating no acute distress Assessment: 10/30/17 11:23 withdrawal sx Plan: continue detox increase fluids f/u pending labs
--- NOTE | 2017-10-30 12:46 | EKG ---
Test Reason : Blood Pressure : / mmHG Vent. Rate : 105 BPM Atrial Rate : 105 BPM P-R Int : 172 ms QRS Dur : 092 ms QT Int : 358 ms P-R-T Axes : 055 041 046 degrees QTc Int : 473 ms SINUS TACHYCARDIA WITH PREMATURE ATRIAL COMPLEXES OTHERWISE NORMAL ECG WHEN COMPARED WITH ECG OF 18-SEP-2017 16:24, PREMATURE ATRIAL COMPLEXES ARE NOW PRESENT MINIMAL CRITERIA FOR ANTERIOR INFARCT ARE NO LONGER PRESENT Confirmed by MARTHA TO, BORIS ([id number]) on 10/30/2017 12:46:21 PM Referred By: Confirmed By:BORIS THOMAS MD
[2017-10-30] MEDS: SILVER SULFADIAZINE 1% TOP CREAM 50 GM JAR TP SCH ×2 (14:12→22:55)
[2017-10-30] MEDS ORDERED: diphenhydrAMINE HCL 25 MG CAPSULE (FP) PO ONE ×3 (14:41→23:12)
[2017-10-30] MEDS ORDERED: cloNIDine HCL 0.1 MG TABLET PO ONE (15:45)
[2017-10-30 17:03] LABS: GRANULAR CASTS 6 /lpf; URINE BACTERIA MANY /hpf (NONE SEEN); URINE MUCUS MODERATE; URINE RBC <1 /hpf (0-3); URINE WBC 1 /hpf (3-5)
[2017-10-30 21:11] LABS: URINE LEUK ESTERASE Negative (NEGATIVE)
[2017-10-30] MEDS: ACETAMINOPHEN 325 MG TABLET (FP) PO PRN (22:00)
[2017-10-30] MEDS: hydrOXYzine PAMOATE 50 MG CAPSULE (FP) PO PRN (22:14)
[2017-10-30] MEDS: THIAMINE HCL 100 MG TABLET (FP) PO SCH (22:55)
[2017-10-31] MEDS: METHADONE HCL 40 MG DISPERSABLE TABLET PO SCH (05:39)
[2017-10-31] MEDS: chlordiazePOXIDE HCL 25 MG CAPSULE PO SCH ×2 (05:40→10:26)
[2017-10-31] MEDS: CEPHALEXIN MONOHYDRATE 500 MG CAPSULE (UD) PO SCH ×4 (05:40→23:52)
[2017-10-31 10:00] LABS: BASOPHIL 0.5 % (0-2.0); EOSINOPHIL 3.1 % (0-4.5); MCHC 30.4 g/dl (32.0-36.0); MEAN CELL VOLUME 72.4 fl (80-96); MEAN PLT VOLUME 7.3 fl (7.5-11.1); NEUTROPHILS 68.7 % (42.8-82.8); PLATELET COUNT 204 K/MM3 (134-434); RDW 19.1 % (11.6-15.6); WHITE BLOOD COUNT 5.6 K/mm3 (4.0-10.0)
[2017-10-31] MEDS: PRENATAL VITAMINS W/ FOLIC ACID TABLET (FP) PO SCH (10:25)
[2017-10-31] MEDS: SILVER SULFADIAZINE 1% TOP CREAM 50 GM JAR TP SCH ×2 (10:26→22:15)
--- NOTE | 2017-10-31 11:39 | PN ---
[facility] CIWA - CIWA Score Nausea/Vomitin-No Nausea/No Vomiting Muscle Tremors: 4-Moderate,w/Arms Extend Anxiety: 3 Agitation: 3 Paroxysmal Sweats: 2 Orientation: 0-Oriented Tacttile Disturbances: 0-None Auditory Disturbances: 0-None Visual Disturbances: 0-None Headache: 1-Very Mild CIWA-Ar Total Score: 13 S Progress Note (SOAP) Subjective: irritable dry skin itchy sweats Objective: 10/31/17 11:35 Vital Signs Temperature 96.8 F L 10/31/17 09:21 Pulse Rate 92 H 10/31/17 09:21 Respiratory Rate 18 10/31/17 09:21 Blood Pressure 144/88 10/31/17 09:21 O2 Sat by Pulse Oximetry (%) Laboratory Tests 10/29/17 10/30/17 10/30/17 00:00 07:00 07:00 WBC 6.7 D RBC 3.83 Hgb 8.3 L Hct 27.7 L MCV 72.4 L MCH 21.7 L MCHC 30.0 L RDW 18.7 H Plt Count 213 MPV 7.0 L Neutrophils % Lymphocytes % Monocytes % Eosinophils % Basophils % Sodium 135 L Potassium 4.1 Chloride 98 Carbon Dioxide 32 Anion Gap 5 L BUN 4 L Creatinine 0.4 L Creat Clearance w eGFR > 60 Random Glucose 101 Calcium 8.0 L Total Bilirubin 0.6 D AST 18 ALT 15 D Alkaline Phosphatase 123 H D Total Protein 7.7 Albumin 2.3 L Urine Color Lt. yellow Urine Appearance Clear Urine pH 6.0 Ur Specific [place] 1.025 Urine Protein 3+ H D Urine Glucose (UA) Negative Urine Ketones Trace H Urine Blood 2+ H Urine Nitrite Positive Urine Bilirubin Negative Urine Urobilinogen 0.2 Ur Leukocyte Esterase Negative Urine WBC (Auto) 1 Urine RBC (Auto) <1 Ur Epithelial Cells Rare Urine Bacteria Many Granular Casts 6 Urine Mucus Moderate RPR Titer 10/30/17 10/31/17 07:00 07:00 WBC 5.6 RBC 3.57 L Hgb 7.9 L Hct 25.9 L MCV 72.4 L MCH 22.0 L MCHC 30.4 L RDW 19.1 H Plt Count 204 MPV 7.3 L Neutrophils % 68.7 Lymphocytes % 16.9 Monocytes % 10.8 H Eosinophils % 3.1 Basophils % 0.5 Sodium Potassium Chloride Carbon Dioxide Anion Gap BUN Creatinine Creat Clearance w eGFR Random Glucose Calcium Total Bilirubin AST ALT Alkaline Phosphatase Total Protein Albumin Urine Color Urine Appearance Urine pH Ur Specific [place] Urine Protein Urine Glucose (UA) Urine Ketones Urine Blood Urine Nitrite Urine Bilirubin Urine Urobilinogen Ur Leukocyte Esterase Urine WBC (Auto) Urine RBC (Auto) Ur Epithelial Cells Urine Bacteria Granular Casts Urine Mucus RPR Titer Nonreactive aaox3 ambulating no acute distress Assessment: 10/31/17 11:38 withdrawal sx Plan: continue detox increase fluids ammonium lactate lotion benadryl 50mg prn for itchy
[2017-10-31 14:00] LABS: URINE APPEARANCE CLEAR; URINE BILIRUBIN NEGATIVE (NEGATIVE); URINE BLOOD 2+ (NEGATIVE); URINE COLOR LTYELLOW; URINE GLUCOSE (UA) NEGATIVE (NEGATIVE); URINE KETONE NEGATIVE (NEGATIVE); URINE NITRITE NEGATIVE (NEGATIVE); URINE UROBILINOGEN NEGATIVE mg/dL (0.2-1.0)
[2017-10-31] MEDS: ACETAMINOPHEN 325 MG TABLET (FP) PO PRN (14:03)
[2017-10-31] MEDS ORDERED: cloNIDine HCL 0.1 MG TABLET PO ONE (14:04)
[2017-10-31] MEDS: diphenhydrAMINE HCL 50 MG CAPSULE PO PRN ×2 (14:04→15:24)
[2017-10-31 14:06] LABS: URINE PROTEIN 2+ (NEGATIVE)
[2017-10-31 14:12] LABS: URINE MUCUS RARE; URINE RBC 6 /hpf (0-3); URINE WBC 4 /hpf (3-5)
[2017-10-31] MEDS: AMMONIUM LACTATE 12% LOTION 225 GM BOTTLE TP SCH ×2 (15:28→22:15)
[2017-10-31] MEDS: chlordiazePOXIDE 5 MG CAPSULE PO SCH ×2 (17:25→22:14)
[2017-10-31 19:19] LABS: URINE LEUK ESTERASE Negative (NEGATIVE)
[2017-10-31] MEDS: hydrOXYzine PAMOATE 50 MG CAPSULE (FP) PO PRN (22:14)
[2017-10-31] MEDS: cloNIDine HCL 0.1 MG TABLET PO SCH (22:14)
[2017-10-31] MEDS: THIAMINE HCL 100 MG TABLET (FP) PO SCH (22:14)
[2017-11-01] MEDS: diphenhydrAMINE HCL 50 MG CAPSULE PO PRN ×2 (01:31→22:26)
[2017-11-01] MEDS: chlordiazePOXIDE HCL 25 MG CAPSULE PO PRN ×2 (01:50→14:29)
[2017-11-01] MEDS: CEPHALEXIN MONOHYDRATE 500 MG CAPSULE (UD) PO SCH ×4 (05:09→23:08)
[2017-11-01] MEDS: chlordiazePOXIDE 5 MG CAPSULE PO SCH ×2 (05:09→10:18)
[2017-11-01] MEDS: METHADONE HCL 40 MG DISPERSABLE TABLET PO SCH (05:09)
--- NOTE | 2017-11-01 09:54 | PN ---
BHS Progress Note (SOAP) Subjective: Sweating,interrupted sleep,restless. Objective: 11/01/17 09:52 Vital Signs - 8 hr 11/01/17 11/01/17 11/01/17 03:30 06:26 09:52 Temperature 98.1 F 98.4 F Pulse Rate 94 H 105 H Respiratory 18 20 19 Rate Blood Pressure 164/97 157/95 Laboratory Tests 10/29/17 10/30/17 10/30/17 00:00 07:00 07:00 WBC 6.7 D RBC 3.83 Hgb 8.3 L Hct 27.7 L MCV 72.4 L MCH 21.7 L MCHC 30.0 L RDW 18.7 H Plt Count 213 MPV 7.0 L Neutrophils % Lymphocytes % Monocytes % Eosinophils % Basophils % Sodium 135 L Potassium 4.1 Chloride 98 Carbon Dioxide 32 Anion Gap 5 L BUN 4 L Creatinine 0.4 L Creat Clearance w eGFR > 60 Random Glucose 101 Calcium 8.0 L Total Bilirubin 0.6 D AST 18 ALT 15 D Alkaline Phosphatase 123 H D Total Protein 7.7 Albumin 2.3 L Urine Color Lt. yellow Urine Appearance Clear Urine pH 6.0 Ur Specific [place] 1.025 Urine Protein 3+ H D Urine Glucose (UA) Negative Urine Ketones Trace H Urine Blood 2+ H Urine Nitrite Positive Urine Bilirubin Negative Urine Urobilinogen 0.2 Ur Leukocyte Esterase Negative Urine WBC (Auto) 1 Urine RBC (Auto) <1 Ur Epithelial Cells Rare Urine Bacteria Many Granular Casts 6 Urine Mucus Moderate RPR Titer 10/30/17 10/31/17 10/31/17 07:00 07:00 09:30 WBC 5.6 RBC 3.57 L Hgb 7.9 L Hct 25.9 L MCV 72.4 L MCH 22.0 L MCHC 30.4 L RDW 19.1 H Plt Count 204 MPV 7.3 L Neutrophils % 68.7 Lymphocytes % 16.9 Monocytes % 10.8 H Eosinophils % 3.1 Basophils % 0.5 Sodium Potassium Chloride Carbon Dioxide Anion Gap BUN Creatinine Creat Clearance w eGFR Random Glucose Calcium Total Bilirubin AST ALT Alkaline Phosphatase Total Protein Albumin Urine Color Ltyellow Urine Appearance Clear Urine pH 8.0 D Ur Specific [place] 1.009 Urine Protein 2+ H Urine Glucose (UA) Negative Urine Ketones Negative Urine Blood 2+ H Urine Nitrite Negative Urine Bilirubin Negative Urine Urobilinogen Negative Ur Leukocyte Esterase Negative Urine WBC (Auto) 4 Urine RBC (Auto) 6 Ur Epithelial Cells Rare Urine Bacteria Granular Casts Urine Mucus Rare RPR Titer Nonreactive labs noted, known to have anemia. Start feosol Assessment: 11/01/17 09:53 Withdrawal sx. Plan: Continue detox
[2017-11-01] MEDS: cloNIDine HCL 0.1 MG TABLET PO SCH ×2 (10:18→22:25)
[2017-11-01] MEDS: PRENATAL VITAMINS W/ FOLIC ACID TABLET (FP) PO SCH (10:18)
[2017-11-01] MEDS: AMMONIUM LACTATE 12% LOTION 225 GM BOTTLE TP SCH ×2 (10:19→22:26)
[2017-11-01] MEDS: SILVER SULFADIAZINE 1% TOP CREAM 50 GM JAR TP SCH ×3 (10:20→22:28)
[2017-11-01] MEDS: FERROUS SO4 325 MG TABLET (FP) PO SCH ×2 (12:17→18:13)
[2017-11-01] MEDS: chlordiazePOXIDE HCL 10 MG CAPSULE PO SCH ×2 (17:55→22:26)
[2017-11-01] MEDS: THIAMINE HCL 100 MG TABLET (FP) PO SCH (22:25)
[2017-11-01 23:21] VITALS: TEMP 97.7
[2017-11-02] MEDS: METHADONE HCL 40 MG DISPERSABLE TABLET PO SCH (05:23)
[2017-11-02] MEDS: chlordiazePOXIDE HCL 10 MG CAPSULE PO SCH (05:24)
[2017-11-02] MEDS: CEPHALEXIN MONOHYDRATE 500 MG CAPSULE (UD) PO SCH (05:24)
[2017-11-02 06:16] VITALS: BP 153/96; PULSE 98
--- NOTE | 2017-11-02 11:02 | DS ---
[facility] Detox Discharge Summary Admission Date: 10/29/17 Discharge Date: 11/02/17 - History Present History: Alcohol Dependence, MMTP Pertinent Past History: HIV infection - Physical Exam Results Vital Signs: Vital Signs Temperature 97.7 F 11/02/17 06:00 Pulse Rate 98 H 11/02/17 06:00 Respiratory Rate 20 11/02/17 06:00 Blood Pressure 153/96 11/02/17 06:00 O2 Sat by Pulse Oximetry (%) Pertinent Admission Physical Exam Findings: Withdrawal sx. Laboratory Last Values WBC 5.6 K/mm3 (4.0-10.0) 10/31/17 07:00 RBC 3.57 M/mm3 (3.60-5.2) L 10/31/17 07:00 Hgb 7.9 GM/dL (10.7-15.3) L 10/31/17 07:00 Hct 25.9 % (32.4-45.2) L 10/31/17 07:00 MCV 72.4 fl (80-96) L 10/31/17 07:00 MCH 22.0 pg (25.7-33.7) L 10/31/17 07:00 MCHC 30.4 g/dl (32.0-36.0) L 10/31/17 07:00 RDW 19.1 % (11.6-15.6) H 10/31/17 07:00 Plt Count 204 K/MM3 (134-434) 10/31/17 07:00 MPV 7.3 fl (7.5-11.1) L 10/31/17 07:00 Neutrophils % 68.7 % (42.8-82.8) 10/31/17 07:00 Lymphocytes % 16.9 % (8-40) 10/31/17 07:00 Monocytes % 10.8 % (3.8-10.2) H 10/31/17 07:00 Eosinophils % 3.1 % (0-4.5) 10/31/17 07:00 Basophils % 0.5 % (0-2.0) 10/31/17 07:00 Sodium 135 mmol/L (136-145) L 10/30/17 07:00 Potassium 4.1 mmol/L (3.5-5.1) 10/30/17 07:00 Chloride 98 mmol/L (98-107) 10/30/17 07:00 Carbon Dioxide 32 mmol/L (21-32) 10/30/17 07:00 Anion Gap 5 (8-16) L 10/30/17 07:00 BUN 4 mg/dL (7-18) L 10/30/17 07:00 Creatinine 0.4 mg/dL (0.55-1.02) L 10/30/17 07:00 Creat Clearance w eGFR > 60 (>60) 10/30/17 07:00 Random Glucose 101 mg/dL (74-106) 10/30/17 07:00 Calcium 8.0 mg/dL (8.5-10.1) L 10/30/17 07:00 Total Bilirubin 0.6 mg/dL (0.2-1.0) D 10/30/17 07:00 AST 18 U/L (15-37) 10/30/17 07:00 ALT 15 U/L (12-78) D 10/30/17 07:00 Alkaline Phosphatase 123 U/L (45-117) H D 10/30/17 07:00 Total Protein 7.7 g/dl (6.4-8.2) 10/30/17 07:00 Albumin 2.3 g/dl (3.4-5.0) L 10/30/17 07:00 Urine Color Ltyellow 10/31/17 09:30 Urine Appearance Clear 10/31/17 09:30 Urine pH 8.0 (5.0-8.0) D 10/31/17 09:30 Ur Specific [place] 1.009 (1.001-1.035) 10/31/17 09:30 Urine Protein 2+ (NEGATIVE) H 10/31/17 09:30 Urine Glucose (UA) Negative (NEGATIVE) 10/31/17 09:30 Urine Ketones Negative (NEGATIVE) 10/31/17 09:30 Urine Blood 2+ (NEGATIVE) H 10/31/17 09:30 Urine Nitrite Negative (NEGATIVE) 10/31/17 09:30 Urine Bilirubin Negative (NEGATIVE) 10/31/17 09:30 Urine Urobilinogen Negative mg/dL (0.2-1.0) 10/31/17 09:30 Ur Leukocyte Esterase Negative (NEGATIVE) 10/31/17 09:30 Urine WBC (Auto) 4 /hpf (3-5) 10/31/17 09:30 Urine RBC (Auto) 6 /hpf (0-3) 10/31/17 09:30 Ur Epithelial Cells Rare /HPF (FEW) 10/31/17 09:30 Urine Bacteria Many /hpf (NONE SEEN) 10/29/17 00:00 Granular Casts 6 /lpf 10/29/17 00:00 Urine Mucus Rare 10/31/17 09:30 RPR Titer Nonreactive (NONREACTIVE) 10/30/17 07:00 labs noted consistent with medical condition (HIV) - Treatment Hospital Course: Detox Protocol Followed, Detoxed Safely, Responded well, Discharged Condition Good, Rehab Referral Accepted Patient has Accepted a Rehab Referral to: [facility] - Medication Discharge Medications: Ambulatory Orders Elviteg/Cob/Emtri/Tenof Alafen [Genvoya (Non-Formulary)] 1 each PO DAILY - Diagnosis (1) Alcohol dependence with uncomplicated withdrawal Status: Chronic (2) HIV (human immunodeficiency virus infection) Status: Chronic (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
== END 2017-11-02 06:01 | disposition home or self-care (01) | DRG 773 ==
LOC: YASAS 11:56 → Y6N 16:26
PROVIDERS: ADMIT Internal Medicine; ATTEND Internal Medicine
PROC: HZ2ZZZZ Detoxification Services for Substance Abuse Treatment (ICD-10-PCS; principal; 2017-10-29)
DX: F11.20 Opioid dependence, uncomplicated (principal); F10.230 Alcohol dependence with withdrawal, uncomplicated; F19.24 Other psychoactive substance dependence with psychoactive substance-induced mood disorder; L03.115 Cellulitis of right lower limb; L03.116 Cellulitis of left lower limb; L97.519 Non-pressure chronic ulcer of other part of right foot with unspecified severity; Z86.718 Personal history of other venous thrombosis and embolism; Z21 Asymptomatic human immunodeficiency virus [HIV] infection status; N39.0 Urinary tract infection, site not specified; Z98.84 Bariatric surgery status; Z95.828 Presence of other vascular implants and grafts
CPT/HCPCS: 36415; 80053; 81003; 81015; 85025; 85027; 86593; 93005; 93010